=== PATIENT | male | born 1975 | race Caucasian/White ===

== ENCOUNTER → 2021-01-26 | Outpatient (CLI) | payer OTHER | LOC: COL.RAD 15:07 | DX: R06.02 Shortness of breath (principal); R07.9 Chest pain, unspecified ==

== ENCOUNTER → 2021-01-29 | Outpatient (CLI) | payer OTHER | LOC: COL.RAD 07:37 | DX: K76.0 Fatty (change of) liver, not elsewhere classified (principal) ==

== ENCOUNTER → 2021-09-29 | Outpatient (CLI) | payer OTHER ==
[~2021-09-29] MED LIST: ASPIRIN E.C. 8181 MG PO; ATARAX 25MG25 MG/TAB PO; BYSTOLIC20 MG PO; GLUCOPHAGE1000 MG PO; KLOR-CON SPRIN10 MEQ PO; LASIX 40MG TABL40 MG PO; LEXAPRO20 MG PO; LIPITOR 10MG10 MG PO; NORVASC 10MG10 MG PO; PRILOSEC 20MG20 MG PO; PRINZIDE 25 MG-1 TAB PO; VICTOZA6 MG/ML SQ
== END ==
LOC: DIA.ED 07:58
DX: E11.65 Type 2 diabetes mellitus with hyperglycemia (principal); Z79.84 Long term (current) use of oral hypoglycemic drugs; I10 Essential (primary) hypertension; E78.5 Hyperlipidemia, unspecified
CPT/HCPCS: G0108

== ENCOUNTER → 2023-11-28 | Outpatient (CLI) | payer OTHER | LOC: COL.CARD 13:48 | DX: Z01.818 Encounter for other preprocedural examination (principal) ==

== ENCOUNTER 2024-02-20 00:05 | Emergency (ER) | payer OTHER ==
[~2024-02-20] VITALS: Ht 180.3 cm; Wt 193.2 kg
[2024-02-20] MEDS ORDERED: NS 1,000 ML IV ONE (00:15)
[2024-02-20 00:19] LABS: MEAN CELL VOLUME 84 fl (80.0-100.0); MEAN CORPUSCULAR HGB CONC 32 g/dl (33.0-37.0); MEAN PLATELET VOLUME 10.4 fl (7.4-10.4); PLATELET COUNT 473 K/mm3 (130-400); RED BLOOD COUNT 7.46 M/mm3 (4.20-5.60); REDCELL DISTRIBUTION WIDTH-CV 17.9 % (11.5-14.5)
[2024-02-20 00:23] LABS: HEMATOCRIT 62.9 % (42.0-52.0); MEAN CORPUSCULAR HEMOGLOBIN 27 pg (27-31)
[2024-02-20 00:24] LABS: HEMOGLOBIN 20.1 g/dl (13.5-18.0)
[2024-02-20 00:36] LABS: ALBUMIN 3.9 g/dL (3.5-5.0); BILIRUBIN,TOTAL 0.5 mg/dL (0.2-1.2); CREATININE, serum 7.43 mg/dL (0.72-1.25); MAGNESIUM 1.7 mg/dL (1.6-2.6); POTASSIUM 3.2 mEq/L (3.5-4.5); TOTAL PROTEIN 8.2 g/dl (6.2-8.1)
[2024-02-20 00:55] LABS: TROPONIN-I 0.084 ng/mL (0.00-0.033)
[2024-02-20 01:16] LABS: BAND 1 % (0-10); EOSINOPHIL 2 % (0-4); LYMPHOCYTE 53 % (20.0-51.0); NEUTROPHILS 40 % (42.0-75.2)
[2024-02-20 01:17] LABS: ANISOCYTOSIS 1+; PLATELET ESTIMATE INCREASED (NORMAL)
[2024-02-20] MEDS ORDERED: Morphine 4 MG/ML VIAL IV ONE (03:45)
[2024-02-20 04:30] VITALS: BP 125/55; PULSE 103; TEMP 98
[2024-02-20 07:02] LABS: CLOSTRIDIUM DIFF A/B NEG
== END 2024-02-20 05:05 | disposition short-term general hospital (02) ==
LOC: COL.ER 00:05
PROVIDERS: Emergency Medicine
DX: N17.9 Acute kidney failure, unspecified (principal); D72.829 Elevated white blood cell count, unspecified; R79.89 Other specified abnormal findings of blood chemistry
CPT/HCPCS: J2270; J7030

== ENCOUNTER 2024-03-24 12:32 | Emergency (ER) | payer OTHER ==
[~2024-03-24] VITALS: Ht 180.3 cm; Wt 185.5 kg
[2024-03-24 12:52] VITALS: TEMP 97.7
[2024-03-24] MEDS ORDERED: Lidocaine 4% Topical Patch TP ONE (13:45)
[2024-03-24] MEDS ORDERED: Acetaminophen 500 MG TAB PO ONE (13:45)
[2024-03-24] MEDS ORDERED: LIDODERM 5% PATC1 EA TP (14:38)
[2024-03-24] MEDS ORDERED: Home oxyCODONE/Acetaminophen 5/325 MG #4 TAB/PACK PO ONE (14:45)
[2024-03-24 15:06] VITALS: BP 160/92; PULSE 72
== END 2024-03-24 15:06 | disposition home or self-care (01) ==
LOC: COL.ER 12:32
DX: S22.31XA Fracture of one rib, right side, initial encounter for closed fracture (principal); X58.XXXA Exposure to other specified factors, initial encounter